=== PATIENT | female | born 1975 | race Caucasian/White ===

== ENCOUNTER → 2021-07-12 16:54 | Outpatient (BNVA) | payer OTHER, SELFPAY | PROVIDERS: Family Provider Nurse Practitioner; PCP Electrodiagnostic Medicine; Visit Provider Registered Nurse Neonatal Intensive Care | DX: Z20.822 Contact with and (suspected) exposure to COVID-19 (principal) | CPT/HCPCS: 87635 ==

== ENCOUNTER 2021-09-17 14:58 | Outpatient (CLI) | payer OTHER, SELFPAY ==
--- NOTE | 2021-09-17 15:04 | MM_ITS ---
WS: [id number] BILATERAL 3D TOMOSYNTHESIS DIGITAL SCREENING MAMMOGRAPHY WITH CAD CLINICAL INFORMATION: SCREENING HISTORY: Screening mammogram. No current complaints. COMPARISON: None. TECHNIQUE: Bilateral CC and MLO views. FINDINGS: Scattered fibroglandular densities bilaterally. Nodular bilateral breast tissue. Vascular calcificati on. No suspicious focal mass, asymmetry, calcifications, or architectural distortion. No evidence of malignancy. MM/[place] [id number] IMPRESSION: BI-RADS: 2-Benign FOLLOW UP: 1 Year Follow-up Recommend return to annual screening mammography.
== END 2021-09-17 14:59 | disposition home or self-care (01) ==
LOC: RADSHAW 15:00
PROVIDERS: PCP Electrodiagnostic Medicine; Visit Provider Electrodiagnostic Medicine
DX: Z12.31 Encounter for screening mammogram for malignant neoplasm of breast (principal)
CPT/HCPCS: 77063; 77067

== ENCOUNTER 2022-03-22 13:48 | Emergency (ER) | payer OTHER, SELFPAY ==
[2022-03-22 13:56] VITALS: BP 171/105; PULSE 80; RESP 30; TEMP 36.6; O2SAT 100
--- NOTE | 2022-03-22 14:04 | ECG_ITS ---
[facility] Test Date: 2022-03-22 Pat Name: Flor Fortune Department: Room: Gender: Female Home Administrator: : 1975 Requested By: Hai Montes Order Number: [id number] Chraito MD: Jack Wilkinson M.D. Measurements Intervals [place] Rate: 78 P: 22 SD: 153 QRS: -3 QRSD: 73 T: 38 QT: 372 QTc: 424 Interpretive Statements SINUS RHYTHM POSSIBLE ANTERIOR MYOCARDIAL INFARCTION , PROBABLY OLD [30 ms Q WAVE IN V3/V4, OR R < 0.2 mV IN V4] Compared to ECG 03/22/2022 14:13:04 Myocardial infarct finding now present Electronically Signed On 03-22-2022 21:59:32 CDT by Jack Wilkinson M.D. [id number]
--- NOTE | 2022-03-22 14:04 | XRR_ITS ---
PROCEDURE INFORMATION: Exam: XR Chest Exam date and time: 03/22/2022 2:11 PM Age: 46 years old Clinical indication: Pain; Chest pressure; Additional info: Cp TECHNIQUE: Imaging protocol: Radiologic exam of the chest. Views: 1 view. COMPARISON: No relevant prior studies available. FINDINGS: Lungs: Unremarkable. No consolidation. Pleural spaces: Unremarkable. No pleural effusion. No pneumothorax. Heart/Mediastinum: Unremarkable. No cardiomegaly. Bones/joints: Unremarkable. XR/XR chest 1V portable [id number] IMPRESSION: No acute findings.
--- NOTE | 2022-03-22 14:08 | W.ED.DIZZY ---
HPI - Dizziness General: Chief Complaint: Dizziness Stated Complaint: Chest Pain, Slurred Speech Time Seen by Provider: 03/22/22 13:59 Source: patient Mode of arrival: ambulatory Limitations: no limitations History of Present Illness: HPI Narrative: 46-year-old female states roughly 30 to 40 minutes ago she started having a sharp pain in the center of her chest she states that she then had numbness to her mouth mild hands and feet along with some dizziness she is quite anxious here does have a history anxiety she is hyperventilating she states she feels like her hands and feet are drawing up having some carpopedal spasms. Denies any fevers denies any worsening improving factors. Associated symptoms: Denies chest pain, chills, headache(s), nausea or vomiting Review of Systems Const: Denies: fever(s), chills, body aches or change in appetite Eyes: Denies: blurry vision or eye discomfort ENMT: Denies: throat pain or dental pain Card: Denies: chest pain Resp: Denies: dyspnea GI: Denies: abdominal pain, nausea, vomiting or diarrhea : Denies: dysuria Musc: Denies: neck pain or back pain Skin/Breast: Denies: rash Neuro: Denies: headache(s) Psych: Reports: anxiety Titi/Lymph: Denies: easy bruising All/Imm: Denies: urticaria PFSH ED PFSH: Medical History Anxiety Social History Alcohol intake: never Physical Exam Const: COMMON NORMALS: patient oriented x3 and healthy appearing GENERAL APPEARANCE: anxious HENMT: COMMON NORMALS: normocephalic and atraumatic HEAD & SCALP: normocephalic and atraumatic Eye: COMMON NORMALS: Equal, round and reactive pupils present and EOMs intact bilaterally PUPIL: Yes Equal, round and reactive pupils present Neck/C-Spine: COMMON NORMALS: full ROM and supple Chest: COMMONS NORMALS: normal inspection of the chest and normal palpation of entire chest wall Resp: COMMON NORMALS: No retractions, No use of accessory muscles and clear to auscultation bilaterally EFFORT & INSPECTION: Yes tachypneic AUSCULTATION: clear to auscultation bilaterally Cardio: COMMON NORMALS: regular rate, regular rhythm and No murmurs present (Cardio) RATE: regular rate RHYTHM: regular rhythm GI: COMMON NORMALS: Normal to inspection, nondistended, normoactive bowel sounds present, Soft to palpation, non-tender and no masses PALPATION: Yes Soft to palpation Extremity: COMMON NORMALS: normal to inspection and full ROM Neuro: COMMON NORMALS: patient oriented x3, moves all extremities and no focal motor deficits CRANIAL NERVES: Yes CN normal except as noted GAIT: Yes Normal gait present Psych: COMMON NORMALS: mental status grossly normal, Normal thought process present and cooperative THOUGHT PROCESS: Normal thought process present Skin: COMMON NORMALS: no rashes or lesions noted and no wounds GENERAL SKIN EXAM: no rashes or lesions noted Course Vital Signs: Vital signs: Vital Signs Temperature 98 F 03/22/22 13:56 Pulse Rate 75 03/22/22 16:30 Respiratory Rate 19 H 03/22/22 16:30 Blood Pressure 127/87 03/22/22 16:30 Pulse Oximetry 100 03/22/22 16:30 Oxygen Delivery Me thod 03/22/22 14:30 MDM - Dizziness Medical Decision Making Patient presents here with chest pain since resolved she is also having anxiety attack when she arrived likely causing her paresthesias she feels much improved here after Ativan initial and repeat troponins are negative she is stable for discharge she is to follow-up with PCP and return if worsening she understands agrees to plan. Lab Data : 03/22/22 13:55 03/22/22 13:55 Radiology Impressions Chest X-Ray 03/22/22 14:04 IMPRESSION: No acute findings. Head CT 03/22/22 14:23 IMPRESSION: No intracranial lesion or injury Laboratory Results WBC 6.0 10^3/uL (4.0-10.0) 03/22/22 13:55 RBC 5.04 10^6/uL (4.1-5.3) 03/22/22 13:55 Hgb 14.9 g/dL (11.5-15.3) 03/22/22 13:55 Hct 44.0 % (37.0-47.0) 03/22/22 13:55 MCV 87.3 fl (81-99) 03/22/22 13:55 MCH 29.6 pg (28.0-34.0) 03/22/22 13:55 MCHC 33.9 g/dL (30.0-36.0) 03/22/22 13:55 RDW 13.8 % (12.1-15.1) 03/22/22 13:55 Plt Count 281 10^3/cmm (130-400) 03/22/22 13:55 MPV 9.4 fL (7.4-10.4) 03/22/22 13:55 Neut % (Auto) 56.1 % 03/22/22 13:55 Lymph % (Auto) 33.1 % 03/22/22 13:55 Bibb % (Auto) 8.5 % 03/22/22 13:55 Eos % (Auto) 1.7 % 03/22/22 13:55 Baso % (Auto) 0.3 % 03/22/22 13:55 Neut # (Auto) 3.35 10^3/uL (1.8-7.7) 03/22/22 13:55 Lymph # (Auto) 2.0 10^3/uL (0.8-4.8) 03/22/22 13:55 [place]b # (Auto) 0.5 10^3/uL (0.2-0.9) 03/22/22 13:55 Eos # (Auto) 0.1 10^3/uL (0.0-0.8) 03/22/22 13:55 Baso # (Auto) 0.0 10^3/uL (0.0-0.1) 03/22/22 13:55 Nucleated RBC % (auto) 0 % 03/22/22 13:55 Nucleated RBCs # 0.0 /100WBC 03/22/22 13:55 PT 13.00 SECONDS (12.1-14.9) 03/22/22 13:55 INR 0.95 (0.8-1.2) 03/22/22 13:55 Sodium 137 mmol/L (136-145) 03/22/22 13:55 Potassium 4.0 mmol/L (3.5-5.1) 03/22/22 13:55 Chloride 104 mmol/L (98-107) 03/22/22 13:55 Carbon Dioxide 21 mmol/L (22-29) L 03/22/22 13:55 Anion Gap 16.0 (5-19) 03/22/22 13:55 BUN 13 mg/dL (6-20) 03/22/22 13:55 Creatinine 0.8 mg/dL (0.5-0.9) 03/22/22 13:55 GFR Calculation 77.2 mL/min (90-130) L 03/22/22 13:55 Glucose 111 mg/dL (65-115) 03/22/22 13:55 Calculated Osmolality 285 mOsm/kg (285-295) 03/22/22 13:55 Calcium 9.1 mg/dL (8.5-10.5) 03/22/22 13:55 Total Bilirubin 0.3 mg/dL (0.15-1.2) 03/22/22 13:55 AST 17 U/L (0-32) 03/22/22 13:55 ALT 25 U/L (0-33) 03/22/22 13:55 Alkaline Phosphatase 88 U/L (35-105) 03/22/22 13:55 Troponin T Baseline 6 ng/L (0-10) 03/22/22 13:55 Troponin T 120 Minute 6.00 ng/L (0-10) 03/22/22 16:01 Total Protein 7.0 g/dL (6.6-8.7) 03/22/22 13:55 Albumin 4.1 g/dL (3.5-5.2) 03/22/22 13:55 Globulin 2.9 g/dL (1.3-4.6) 03/22/22 13:55 EKG Data EKG 1: I personally reviewed and interpreted this EKG as follows: EKG interpretation date: 03/22/22 EKG interpretation time: 14:13 Interpretation: nsr hr [address] or t wave abnormalities qrs 80 qtc 395 EKG 2: I personally reviewed and interpreted this EKG as follows: EKG interpretation date: 03/22/22 EKG interpretation time: 15:43 Interpretation: nsr hr [address] or t wave abnormalities qrs 73 qtc 405 Discharge Plan Discharge Patient Disposition: Home Clinical Impression: Chest pain, Anxiety Prescriptions: No Action alprazolam 0.5 mg tablet 0.5 mg PO BID PRN (Reason: Anxiety) triamterene-hydrochlorothiazid 37.5-25 mg tablet 1 tab PO DAILY Discharge Orders: Discharge ED (Routine); Ordered 03/22/22 Ordered By: Hai Montes Referrals: Daren Figueroa DO [Primary Care Provider] - Discharge Diet: Advance as tolerated Discharge Activity: Resume usual activity Patient Instructions: Chest Pain (ED) Coding Level of Care Code ED Customer Supply Chain Analyst for Chg Fwd Exam Comprehensive NIH stroke score NIHSS Level Of Consciousness - 1a: 0 Level Of Consciousness Questions - 1b: Both Correct Level Of Consciousness Commands - 1c: Both Correct Best Gaze - 2: Normal Visual Saunders - 3: No Visual Loss Facial Palsy - 4: Normal Motor Arm Right - 5: No Drift Motor Arm Left - 5: No Drift Motor Leg Right - 6: No Drift Motor Leg Left - 6: No Drift Limb Ataxia - 7: Absent Sensory - 8: Normal Best Language - 9: No Aphasia Dysarthia - 10: Normal Extinction And Inattention - 11: 0 Score Total Score: 0
[2022-03-22 14:15] VITALS: BP 141/95; PULSE 71; RESP 24; O2SAT 96
[2022-03-22 14:15] LABS: Basophils % 0.3 %; Eosinophils # 0.1 10^3/uL (0.0-0.8); Eosinophils % 1.7 %; Hemoglobin 14.9 g/dL (11.5-15.3); Lymphocytes % 33.1 %; Mean Corpuscular HGB Conc 33.9 g/dL (30.0-36.0); Mean Corpuscular Hemoglobin 29.6 pg (28.0-34.0); Mean Corpuscular Volume 87.3 fl (81-99); Mean Platelet Volume 9.4 fL (7.4-10.4); Monocytes # 0.5 10^3/uL (0.2-0.9); Monocytes % 8.5 %; Neutrophils # 3.35 10^3/uL (1.8-7.7); Neutrophils % 56.1 %; Nucleated Red Blood Cells % 0 %; Platelet Count 281 10^3/cmm (130-400); Red Blood Count 5.04 10^6/uL (4.1-5.3); Red Cell Distribution Width 13.8 % (12.1-15.1)
[2022-03-22 14:16] LABS: INR 0.95 (0.8-1.2)
[2022-03-22] MEDS: LORazepam 2 mg Tablet PO (14:18)
--- NOTE | 2022-03-22 14:23 | CTR_ITS ---
PROCEDURE INFORMATION: Exam: CT Head Without Contrast Exam date and time: 03/22/2022 2:36 PM Age: 46 years old Clinical indication: Pain; Dizziness; Headache TECHNIQUE: Imaging protocol: Computed tomography of the head without contrast. Radiation optimization: All CT scans at this facility use at least one of these dose optimization techniques: automated exposure control; mA and/or kV adjustment per patient size (includes targeted exams where dose is matched to clinical indication); or iterative reconstruction. COMPARISON: No relevant prior studies available. RADIATION DOSE METRICS: Total DLP (mGy-cm): 1012.08 FINDINGS: Brain: There is no evidence of infarct, ballard-white matter differentiation is preserved. There is no hemorrhage or extra-axial collection. There is no mass. No evidence of subarachnoid hemorrhage. No evidence of cerebral edema. Cerebral ventricles: There is no hydrocephalus. Paranasal sinuses: Visualized sinuses are unremarkable. No fluid levels. Mastoid air cells: Visualized mastoid air cells are well aerated. Bones/joints: Unremarkable. No acute fracture. Soft tissues: Unremarkable. CT/CT head wo con* [id number] IMPRESSION: No intracranial lesion or injury
[2022-03-22 14:30] VITALS: BP 141/95; PULSE 75; RESP 20; O2SAT 100
[2022-03-22 14:44] LABS: Alanine Aminotransferase 25 U/L (0-33); Albumin Level 4.1 g/dL (3.5-5.2); Alkaline Phosphatase 88 U/L (35-105); Aspartate Amino Transferase 17 U/L (0-32); Blood Urea Nitrogen 13 mg/dL (6-20); Calcium 9.1 mg/dL (8.5-10.5); Carbon Dioxide 21 mmol/L (22-29); Chloride 104 mmol/L (98-107); Globulin 2.9 g/dL (1.3-4.6); Glomerular Filtration Rate 77.2 mL/min (90-130); Glucose 111 mg/dL (65-115); Osmolality Calculated 285 mOsm/kg (285-295); Sodium 137 mmol/L (136-145); Total Bilirubin 0.3 mg/dL (0.15-1.2)
[2022-03-22 14:45] LABS: Troponin(5th) Baseline 6 ng/L (0-10)
[2022-03-22 15:30] VITALS: BP 125/85; PULSE 75; RESP 19; O2SAT 97
--- NOTE | 2022-03-22 16:04 | ECG_ITS ---
[facility] Test Date: 2022-03-22 Pat Name: Flor Fortune Department: Room: Gender: Female Flotation Tender: : 1975 Requested By: aHi Montes Order Number: [id number] Charito MD: Jack Wilkinson M.D. Measurements Intervals [place] Rate: 78 P: 20 [place]: 146 QRS: 4 QRSD: 80 T: 34 QT: 361 QTc: 414 Interpretive Statements SINUS RHYTHM No previous ECG available for comparison Electronically Signed On 03-22-2022 22:05:07 CDT by Jack Wilkinson M.D. [id number]
[2022-03-22 16:30] VITALS: BP 127/87; PULSE 75; RESP 19; O2SAT 100
[2022-03-22 16:52] VITALS: BP 121/80; PULSE 86; RESP 21; O2SAT 97
[2022-03-22 18:14] LABS: Troponin 5 2HR Delta 0 ABS# (0-10)
== END 2022-03-22 16:50 | disposition home or self-care (01) ==
PROVIDERS: Emergency Provider Emergency Medicine; PCP Electrodiagnostic Medicine
DX: R07.9 Chest pain, unspecified (principal); F41.9 Anxiety disorder, unspecified
CPT/HCPCS: 36415; 70450; 71045; 80053; 84484; 85025; 85610; 93005; 99285

== ENCOUNTER 2022-04-28 15:16 | Emergency (ER) | payer OTHER, SELFPAY ==
[2022-04-28 15:18] VITALS: BP 140/96; PULSE 122; RESP 18; TEMP 37.3; O2SAT 99
--- NOTE | 2022-04-28 15:26 | CTR_ITS ---
PROCEDURE INFORMATION: Exam: CT Head Without Contrast Exam date and time: 04/28/2022 3:31 PM Age: 46 years old Clinical indication: Pain; Headache; Additional info: Upper ext sensation changes/ TALBOT TECHNIQUE: Imaging protocol: Computed tomography of the head without contrast. Axial, coronal and sagittal reformatted images were created and reviewed. Radiation optimization: All CT scans at this facility use at least one of these dose optimization techniques: automated exposure control; mA and/or kV adjustment per patient size (includes targeted exams where dose is matched to clinical indication); or iterative reconstruction. COMPARISON: CT head wo con* [id number] 03/22/2022 2:36 PM RADIATION DOSE METRICS: Total DLP (mGy-cm): 1070.23 FINDINGS: Brain: No CT evidence of acute intracranial hemorrhage or acute territorial infarction. No significant mass effect or midline shift. Basal cisterns patent. Cerebral ventricles: Normal in size and configuration. Paranasal sinuses: Unremarkable. No fluid levels. Mastoid air cells: Grossly unremarkable. Bones/joints: No acute osseous abnormality. Soft tissues: Grossly unremarkable. CT/CT head wo con* [id number] IMPRESSION: No CT evidence of acute intracranial pathology.
--- NOTE | 2022-04-28 15:54 | ED_ITS ---
HPI - Neuro Symptoms/Deficit General: Chief Complaint: Neuro Symptoms/Deficit Stated Complaint: Stoke like symptoms Time Seen by Provider: 04/28/22 15:54 History of Present Illness: Ms. Fortune is a 46-year-old lady with history of hypertension and tobaccoism presenting to the emergency department due to abnormal generalized illness. She reports a similar episode back in March however what brought her in today was sudden onset of abnormal feeling in both arms, feeling tingly all over, posterior headache, and sore throat. This started at 2:19 PM suddenly when she was in her car. She denies specific known provoking factors. Course of symptoms has persisted. No other specific changes in health, exacerbating, or alleviating factors identified. Onset (ago): hour(s) Time: 14:19 History of same: Yes Severity: moderate Review of Systems General: Reports: 10 or more systems reviewed and unremarkable except in HPI and below PFSH ED PFSH: Medical History Anxiety HTN (hypertension) Smoker Surgical History History of reversal of tubal ligation (~2008) S/P tubal ligation (~2002) Family History Father COPD (chronic obstructive pulmonary disease) CHF (congestive heart failure) Hypertension Chronic kidney disease (CKD) Mother Hypertension Diabetes Social History Smoking and tobacco status: current every day smoker cigarettes Packs smoked per day: 1 Years cigarettes smoked: 35 Alcohol intake: never Physical Exam Const: COMMON NORMALS: patient oriented x3 and alert GENERAL APPEARANCE: cooperative and well developed HENMT: COMMON NORMALS: normocephalic and atraumatic HEAD & SCALP: normocephalic and atraumatic THROAT: posterior oropharynx normal Eye: COMMON NORMALS: Equal, round and reactive pupils present, EOMs intact bilaterally, conjunctivae normal and normal visual head by confrontation CONJUNCTIVA: Yes conjunctivae normal SCLERA: sclerae normal PUPIL: Yes Equal, round and reactive pupils present Neck/C-Spine: COMMON NORMALS: supple GENERAL: Yes trachea midline Resp: COMMON NORMALS: normal respiratory effort EFFORT & INSPECTION: Yes able to speak in complete sentences Cardio: COMMON NORMALS: regular rhythm RATE: tachycardic RHYTHM: regular rhythm GI: COMMON NORMALS: Soft to palpation PALPATION: Yes Soft to palpation and No Tenderness to palpation present (GI) Extremity: NARRATIVE EXTREMITY EXAM: Positive Trousseau sign GENERAL: Yes normal exam except as noted and No edema Neuro: COMMON NORMALS: patient oriented x3, CN's II-XII intact bilaterally, moves all extremities, no focal motor deficits and no sensory deficits noted SENSORIUM/ORIENTATION: Yes alert and No Orientation impaired Psych: COMMON NORMALS: mental status grossly normal and Normal thought process present THOUGHT PROCESS: Normal thought process present Course Vital Signs: Vital signs: Vital Signs Temperature 99.2 F 04/28/22 15:18 Pulse Rate 122 H 04/28/22 15:18 Respiratory Rate 18 04/28/22 15:18 Blood Pressure 140/96 04/28/22 15:18 Pulse Oximetry 99 04/28/22 15:18 MDM - Neuro Symptoms/Deficit Medical Decision Making 46-year-old lady presenting with concern over strokelike symptoms. Physical exam performed as above and symptoms are not very Consistent with acute stroke. Seems more likely to be related to anxiety/hyperventilation though does require further evaluation. CT negative for acute intracranial pathology. No significant hematologic abnormalities. Metabolic panel with hypokalemia. Hematuria present. Prior to completion of ED evaluation patient expressed desire to leave and left AGAINST MEDICAL ADVICE. Most likely etiology of patient symptoms is unclear though does not appear to be stroke. Medical Records I reviewed the patient's medical records. Lab Data I reviewed the patient's lab results. : 04/28/22 16:30 04/28/22 16:[address] 04/28/22 15:26 IMPRESSION: No CT evidence of acute intracranial pathology. Laboratory Results WBC 6.5 10^3/uL (4.0-10.0) 04/28/22 16:30 RBC 4.77 10^6/uL (4.1-5.3) 04/28/22 16:30 Hgb 14.1 g/dL (11.5-15.3) 04/28/22 16:30 Hct 40.7 % (37.0-47.0) 04/28/22 16:30 MCV 85.3 fl (81-99) 04/28/22 16:30 MCH 29.6 pg (28.0-34.0) 04/28/22 16:30 MCHC 34.6 g/dL (30.0-36.0) 04/28/22 16:30 RDW 12.9 % (12.1-15.1) 04/28/22 16:30 Plt Count 281 10^3/cmm (130-400) 04/28/22 16:30 MPV 8.9 fL (7.4-10.4) 04/28/22 16:30 Neut % (Auto) 59.2 % 04/28/22 16:30 Lymph % (Auto) 29.4 % 04/28/22 16:30 [place] % (Auto) 9.1 % 04/28/22 16:30 Eos % (Auto) 1.5 % 04/28/22 16: Baso % (Auto) 0.3 % 04/28/22 16:30 Neut # (Auto) 3.82 10^3/uL (1.8-7.7) 04/28/22 16:30 Lymph # (Auto) 1.9 10^3/uL (0.8-4.8) 04/28/22 16:30 [place] # (Auto) 0.6 10^3/uL (0.2-0.9) 04/28/22 16:30 Eos # (Auto) 0.1 10^3/uL (0.0-0.8) 04/28/22 16:30 Baso # (Auto) 0.0 10^3/uL (0.0-0.1) 04/28/22 16:30 Nucleated RBC % (auto) 0 % 04/28/22 16:30 Nucleated RBCs # 0.0 /100WBC 04/28/22 16:30 Sodium 136 mmol/L (136-145) 04/28/22 16:30 Potassium 3.0 mmol/L (3.5-5.1) L 04/28/22 16:30 Chloride 97 mmol/L (98-107) L 04/28/22 16:30 Carbon Dioxide 26 mmol/L (22-29) 04/28/22 16:30 Anion Gap 16.0 (5-19) 04/28/22 16:30 BUN 11 mg/dL (6-20) 04/28/22 16:30 Creatinine 0.8 mg/dL (0.5-0.9) 04/28/22 16:30 GFR Calculation 77.2 mL/min (90-130) L 04/28/22 16:30 Glucose 76 mg/dL (65-115) 04/28/22 16:30 POC Glucose 114 mg/dL (70-110) H 04/28/22 16:13 Calculated Osmolality 280 mOsm/kg (285-295) L 04/28/22 16:30 Calcium 9.7 mg/dL (8.5-10.5) 04/28/22 16:30 Ionized Calcium [place] Cancelled 04/28/22 16:30 Total Bilirubin 0.3 mg/dL (0.15-1.2) 04/28/22 16:30 AST 20 U/L (0-32) 04/28/22 16:30 ALT 26 U/L (0-33) 04/28/22 16:30 Alkaline Phosphatase 89 U/L (35-105) 04/28/22 16:30 Troponin T Baseline 6 ng/L (0-10) 04/28/22 16:30 Total Protein 7.5 g/dL (6.6-8.7) 04/28/22 16:30 Albumin 4.3 g/dL (3.5-5.2) 04/28/22 16:30 Globulin 3.2 g/dL (1.3-4.6) 04/28/22 16:30 TSH 1.27 uIU/mL (0.27-4.20) 04/28/22 16:30 Urine Color Yellow (Yellow) 04/28/22 16:19 Urine Appearance Clear (CLEAR) 04/28/22 16:19 Urine pH 6.5 (5-7) 04/28/22 16:19 Ur Specific [place] 1.005 (1.005-1.030) 04/28/22 16:19 Urine Protein Neg (Negative) 04/28/22 16:19 Urine Glucose (UA) Norm (Normal) 04/28/22 16:19 Urine Ketones Negative (Negative) 04/28/22 16:19 Urine Blood 2+ (Negative) H 04/28/22 16:19 Urine Nitrate Negative (Negative) 04/28/22 16:19 Urine Bilirubin Neg (Negative) 04/28/22 16: Urine Urobilinogen Norm mg/dL (Negative) 04/28/22 16:19 Ur Leukocyte Esterase Negative (Negative) 04/28/22 16:19 Urine RBC 0-4 /hpf (0-2) H 04/28/22 16:19 Urine WBC 0-4 /hpf (0-5) H 04/28/22 16:19 Ur Squamous Epith Cells 0-4 /hpf (0-5) H 04/28/22 16:19 Amorphous Sediment Not Reportable 04/28/22 16:19 Urine Bacteria Trace /hpf (NONE) 04/28/22 16:19 Discharge Plan Discharge Patient Disposition: Left Against Medical Advice Clinical Impression: Neurological complaint Condition: Stable Prescriptions: No Action aspirin [Adult Low Dose Aspirin] 81 mg tablet,delayed release (DR/EC) 81 mg PO BEDTIME metoprolol succinate 25 mg tablet extended release 24 hr 25 mg PO BEDTIME olmesartan 5 mg tablet 5 mg PO QAM alprazolam 0.5 mg tablet 0.25 - 0.5 mg PO BEDTIME triamterene-hydrochlorothiazid 37.5-25 mg tablet 1 tab PO QAM Referrals: Ledezma,DEBBIE Norris [Primary Care Provider] - Coding Level of Care Code ED Salesperson Sewing Machines for Chg Fwd Exam Comprehensive
--- NOTE | 2022-04-28 16:02 | ECG_ITS ---
[facility] Test Date: 2022-04-28 Pat Name: Flor Fortune Department: Room: Gender: Female Database Security Administrator: : 1975 Requested By: Sergio Sandoval Order Number: [id number] Charito MD: Pat Brewer M.D. Measurements Intervals [place] Rate: 112 P: 42 [place]: 135 QRS: 14 QRSD: 85 T: 31 QT: 327 QTc: 447 Interpretive Statements SINUS TACHYCARDIA POSSIBLE LEFT ATRIAL ENLARGEMENT [-0.1mV P-WAVE IN V1/V2] LOW QRS VOLTAGE IN PRECORDIAL LEADS [QRS DEFLECTION < 1.0 mV IN CHEST LEADS] MINIMAL ST DEPRESSION [0.025+ mV ST DEPRESSION] ABNORMAL RHYTHM ECG INTERPRETATION BASED ON A DEFAULT AGE OF 40 YEARS Compared to ECG 03/22/2022 15:43:34 Low QRS voltage now present ST (T wave) deviation now present Sinus rhythm no longer present Myocardial infarct finding no longer present Electronically Signed On 04-28-2022 21:03:12 COMMUNITY AFFAIRS DIRECTOR by Pat Brewer M.D. [id number] te
[2022-04-28 16:15] LABS: Glucose Point of Care 114 mg/dL (70-110)
[2022-04-28] MEDS: diphenhydrAMINE 50 mg/mL SDV 1mL 12.5 MG IVP (16:39)
[2022-04-28] MEDS: metoclopramide 5 mg/mL SDV 2 mL 10 MG IVP (16:39)
[2022-04-28] MEDS: ketorolac 30 mg/mL INJ 15 MG IVP (16:39)
[2022-04-28] MEDS: sodium chloride 0.9% 1,000 ML 999 ML IV (16:40)
[2022-04-28 16:49] LABS: Basophils % 0.3 %; Eosinophils # 0.1 10^3/uL (0.0-0.8); Eosinophils % 1.5 %; Hematocrit 40.7 % (37.0-47.0); Hemoglobin 14.1 g/dL (11.5-15.3); Lymphocytes # 1.9 10^3/uL (0.8-4.8); Lymphocytes % 29.4 %; Mean Corpuscular HGB Conc 34.6 g/dL (30.0-36.0); Mean Corpuscular Hemoglobin 29.6 pg (28.0-34.0); Mean Corpuscular Volume 85.3 fl (81-99); Mean Platelet Volume 8.9 fL (7.4-10.4); Monocytes # 0.6 10^3/uL (0.2-0.9); Monocytes % 9.1 %; Neutrophils # 3.82 10^3/uL (1.8-7.7); Neutrophils % 59.2 %; Nucleated Red Blood Cells % 0 %; Platelet Count 281 10^3/cmm (130-400); Red Blood Count 4.77 10^6/uL (4.1-5.3); Red Cell Distribution Width 12.9 % (12.1-15.1); White Blood Count 6.5 10^3/uL (4.0-10.0)
[2022-04-28 17:12] LABS: Troponin(5th) Baseline 6 ng/L (0-10)
[2022-04-28 17:19] LABS: Alanine Aminotransferase 26 U/L (0-33); Albumin Level 4.3 g/dL (3.5-5.2); Alkaline Phosphatase 89 U/L (35-105); Aspartate Amino Transferase 20 U/L (0-32); Blood Urea Nitrogen 11 mg/dL (6-20); Calcium 9.7 mg/dL (8.5-10.5); Carbon Dioxide 26 mmol/L (22-29); Chloride 97 mmol/L (98-107); Globulin 3.2 g/dL (1.3-4.6); Glomerular Filtration Rate 77.2 mL/min (90-130); Glucose 76 mg/dL (65-115); Osmolality Calculated 280 mOsm/kg (285-295); Sodium 136 mmol/L (136-145); Thyroid Stimulating Hormone 1.27 uIU/mL (0.27-4.20); Total Bilirubin 0.3 mg/dL (0.15-1.2); Total Protein 7.5 g/dL (6.6-8.7)
[2022-04-28 17:30] LABS: Add Urine Microscopic? YES; Bilirubin Urine Neg (Negative); Blood Urine 2+ (Negative); Glucose Urine UA Norm (Normal); Ketones Urine Negative (Negative); Leukocyte Esterase Urine Negative (Negative); Nitrate Urine Negative (Negative); Protein Urine Neg (Negative); Specific Gravity, Urine 1.005 (1.005-1.030); Urine Appearance Clear (CLEAR); Urine Color Yellow (Yellow); Urobilinogen Urine Norm (Negative); pH Urine 6.5 (5-7)
[2022-04-28 17:31] LABS: Add Urine Culture? No; Bacteria Urine TRACE /hpf; RBC Urine 0-4 /hpf (0-2); Squamous Epithelial Cell Urine 0-4 /hpf (0-5); WBC Urine 0-4 /hpf (0-5)
--- NOTE | 2022-04-28 18:02 | ECG_ITS ---
[facility] Test Date: 2022-04-28 Pat Name: Flor Fortune Department: Room: Gender: Female Community Life Director: : 1975 Requested By: Sergio Sandoval Order Number: [id number] Charito MD: Pat Brewer M.D. Measurements Intervals [place] Rate: 112 P: 42 [place]: 135 QRS: 14 QRSD: 85 T: 31 QT: 327 QTc: 447 Interpretive Statements SINUS TACHYCARDIA POSSIBLE LEFT ATRIAL ENLARGEMENT [-0.1mV P-WAVE IN V1/V2] LOW QRS VOLTAGE IN PRECORDIAL LEADS [QRS DEFLECTION < 1.0 mV IN CHEST LEADS] MINIMAL ST DEPRESSION [0.025+ mV ST DEPRESSION] ABNORMAL RHYTHM ECG INTERPRETATION BASED ON A DEFAULT AGE OF 40 YEARS Compared to ECG 03/22/2022 15:43:34 Low QRS voltage now present ST (T wave) deviation now present Sinus rhythm no longer present Myocardial infarct finding no longer present Electronically Signed On 04-28-2022 21:08:41 BUILDING PRINCIPAL by Pat Brewer M.D. [id number] te
== END 2022-04-28 17:13 | disposition left against medical advice (07) ==
PROVIDERS: Emergency Provider Emergency Medicine; PCP Nurse Practitioner Family
DX: Z53.29 Procedure and treatment not carried out because of patient's decision for other reasons (principal); R20.2 Paresthesia of skin; R51.9 Headache, unspecified; I10 Essential (primary) hypertension; F17.210 Nicotine dependence, cigarettes, uncomplicated; F41.9 Anxiety disorder, unspecified; Z79.82 Long term (current) use of aspirin
CPT/HCPCS: 36416; 70450; 80053; 81001; 82962; 84443; 84484; 85025; 93005; 96361; 96374; 96375; 99285; J1200; J1885; J2765; J7030

== ENCOUNTER 2022-05-02 20:22 | Emergency (ER) | payer OTHER, SELFPAY ==
[2022-05-02 20:25] VITALS: BP 146/91; PULSE 104; RESP 20; TEMP 36.4; O2SAT 98
--- NOTE | 2022-05-02 20:44 | CTR_ITS ---
PROCEDURE INFORMATION: Exam: CT Head Without Contrast Exam date and time: 05/02/2022 9:00 PM Age: 46 years old Clinical indication: Altered mental status/memory loss; Additional info: AMS, ? sz TECHNIQUE: Imaging protocol: Computed tomography of the head without contrast. Radiation optimization: All CT scans at this facility use at least one of these dose optimization techniques: automated exposure control; mA and/or kV adjustment per patient size (includes targeted exams where dose is matched to clinical indication); or iterative reconstruction. COMPARISON: CT head wo con* [id number] 04/28/2022 3:31 PM RADIATION DOSE METRICS: Total DLP (mGy-cm): 1169.28 FINDINGS: Brain: Unremarkable. No hemorrhage. No significant white matter disease. No edema. Cerebral ventricles: No ventriculomegaly. Paranasal sinuses: 1.7 cm retention cyst right maxillary sinus. The included paranasal sinuses are otherwise clear. Mastoid air cells: Unremarkable as visualized. No mastoid effusion. Bones/joints: Unremarkable. No acute fracture. Soft tissues: Unremarkable. CT/CT head wo con* [id number] IMPRESSION: 1. No acute intracranial abnormality demonstrated. 2. There is no interval change from the prior examination.
--- NOTE | 2022-05-02 20:44 | XRR_ITS ---
PROCEDURE INFORMATION: Exam: XR Chest Exam date and time: 05/02/2022 9:56 PM Age: 46 years old Clinical indication: Shortness of breath; Additional info: AMS TECHNIQUE: Imaging protocol: Radiologic exam of the chest. Views: 1 view. COMPARISON: CR (CHEST, ) 03/22/2022 2:11 PM FINDINGS: Lungs: Mild atelectasis at the lung bases. No consolidative pulmonary infiltrate noted. Pleural spaces: No pleural effusion. No pneumothorax. Heart/Mediastinum: No cardiomegaly. Bones/joints: Unremarkable. XR/XR chest 1V portable [id number] IMPRESSION: 1. Mild atelectasis at the lung bases. This is new when compared to 03/22/2022. 2. No consolidative pulmonary infiltrate noted.
[2022-05-02 20:52] LABS: Basophils # 0.1 10^3/uL (0.0-0.1); Basophils % 0.9 %; Eosinophils # 0.2 10^3/uL (0.0-0.8); Eosinophils % 3.9 %; Hematocrit 39.9 % (37.0-47.0); Hemoglobin 13.3 g/dL (11.5-15.3); Lymphocytes # 2.8 10^3/uL (0.8-4.8); Lymphocytes % 52.6 %; Mean Corpuscular HGB Conc 33.3 g/dL (30.0-36.0); Mean Corpuscular Hemoglobin 29.4 pg (28.0-34.0); Mean Corpuscular Volume 88.3 fl (81-99); Mean Platelet Volume 8.9 fL (7.4-10.4); Monocytes # 0.5 10^3/uL (0.2-0.9); Monocytes % 8.3 %; Neutrophils # 1.82 10^3/uL (1.8-7.7); Neutrophils % 33.7 %; Nucleated Red Blood Cells % 0 %; Platelet Count 298 10^3/cmm (130-400); Red Blood Count 4.52 10^6/uL (4.1-5.3); Red Cell Distribution Width 13.1 % (12.1-15.1); White Blood Count 5.4 10^3/uL (4.0-10.0)
[2022-05-02] MEDS: sodium chloride 0.9% 1,000 ML 999 ML IV (20:53)
[2022-05-02 21:08] LABS: Alanine Aminotransferase 28 U/L (0-33); Albumin Level 4.1 g/dL (3.5-5.2); Alkaline Phosphatase 88 U/L (35-105); Anion Gap 14.8 (5-19); Aspartate Amino Transferase 21 U/L (0-32); Blood Urea Nitrogen 11 mg/dL (6-20); Calcium 9.2 mg/dL (8.5-10.5); Carbon Dioxide 26 mmol/L (22-29); Chloride 101 mmol/L (98-107); Globulin 3.1 g/dL (1.3-4.6); Glomerular Filtration Rate 77.2 mL/min (90-130); Glucose 131 mg/dL (65-115); HCG, Serum Qual Negative (Negative); Magnesium 2.1 mg/dL (1.7-2.3); Osmolality Calculated 287 mOsm/kg (285-295); Phosphorus 3.6 mg/dL (2.5-4.5); Potassium 3.8 mmol/L (3.5-5.1); Sodium 138 mmol/L (136-145); Total Bilirubin 0.2 mg/dL (0.15-1.2); Total Protein 7.2 g/dL (6.6-8.7)
[2022-05-02 21:09] LABS: Alcohol Level < 10 mg/dL (0-10)
[2022-05-02 21:18] LABS: Lactate (Lactic Acid level) 1.7 mmol/L (0.5-2.2)
--- NOTE | 2022-05-02 22:48 | W.ED.GENADLT ---
HPI - General Adult General: Chief complaint: General Medical Stated complaint: High blood pressure, numbness all over Time Seen by Provider: 05/02/22 20:32 Source: patient and family History of Present Illness: 46-year-old female presenting with an episode of shaking and decreased responsiveness at home. Patient and family note that extended family was over, and they seem to be having a good time. She was relaxing she began to have the symptoms at that point. She was confused afterwards. Currently, she is experiencing significant muscular discomfort, some neck pain and headache. She denies significant visual disturbance. She is generally weak, and has a bit of slurred speech Onset (ago): minute(s) Location: head Radiation: other Severity: moderate Quality: other Pain Consistency: other Relieving factors: other Associated symptoms: Reports confusion, diaphoresis, headache(s), nausea, seizures (Questionable), syncope (Potentially) and weakness (Generalized); Deny chest pain, dyspnea, fevers/chills, rash or vomiting Review of Systems Const: Reports: body aches and diaphoresis; Denies: fever(s) Eyes: Denies: change in vision ENMT: Denies: throat pain Card: Reports: syncope (Potentially); Denies: chest pain Resp: Denies: dyspnea GI: Reports: nausea; Denies: abdominal pain or vomiting Musc: Reports: neck pain and back pain Skin/Breast: Denies: rash Neuro: Reports: headache(s) and confusion PFS ED PFSH: Medical History Anxiety HTN (hypertension) Smoker Surgical History History of reversal of tubal ligation (~2008) S/P tubal ligation (~2002) Family History Father COPD (chronic obstructive pulmonary disease) CHF (congestive heart failure) Hypertension Chronic kidney disease (CKD) Mother Hypertension Diabetes Social History Smoking and tobacco status: current every day smoker cigarettes Packs smoked per day: 1 Years cigarettes smoked: 35 Alcohol intake: never Physical Exam Const: GENERAL APPEARANCE: cooperative, well kempt, lethargic (Mildly) and ill appearing (Mildly); not frail appearing ORIENTATION/CONSCIOUSNESS: Yes lethargic (Mildly) HENMT: COMMON NORMALS: normocephalic, atraumatic and Normal external nose present HEAD & SCALP: normocephalic and atraumatic FACE & SINUS: normal facial exam and face symmetric; no abrasion NOSE: Normal external nose present MOUTH: Normal oral and palatal mucosa present and tongue normal Eye: COMMON NORMALS: Equal, round and reactive pupils present, EOMs intact bilaterally and conjunctivae normal ALIGNMENT: Yes alignment normal CONJUNCTIVA: Yes conjunctivae normal PUPIL: Yes Equal, round and reactive pupils present Neck/C-Spine: GENERAL: Yes trachea midline Chest: CHEST: Yes Symmetrical chest wall rise Resp: COMMON NORMALS: normal respiratory effort, No use of accessory muscles and clear to auscultation bilaterally AUSCULTATION: clear to auscultation bilaterally Cardio: COMMON NORMALS: regular rate and regular rhythm RATE: regular rate RHYTHM: regular rhythm GI: COMMON NORMALS: Normal to inspection, nondistended, normoactive bowel sounds present and Soft to palpation PALPATION: Yes Soft to palpation Extremity: COMMON NORMALS: no pedal edema Neuro: ALMAZ COMA SCALE: document GCS findings Almaz coma scale eye opening: Spontaneous Almaz coma scale verbal response: Orientated [place] coma scale motor response: Obey commands Almaz coma scale total score: 15 SENSORIUM/ORIENTATION: Yes lethargic (Mildly) COORDINATION/BALANCE: Normal rapid alternating movements of the distal upper extremity present (Neuro) (Normal) SPEECH: abnormal speech Details: slurred (Minimal) SENSORY EXAM: Yes extremities (Intact) MOTOR EXAM: Normal motor muscle tone present throughout and Motor abnormalities not present COORDINATION: rapid alternating movement UE normal (Normal) Psych: COMMON NORMALS: cooperative APPEARANCE: Yes well kempt ATTITUDE: Yes engaged Skin: COMMON NORMALS: no rashes or lesions noted GENERAL SKIN EXAM: no rashes or lesions noted Course Vital Signs: Vital signs: Vital Signs Temperature 97.5 F L 05/02/22 20:25 Pulse Rate 89 05/02/22 23:04 Respiratory Rate 20 H 05/02/22 23:04 Blood Pressure 129/84 05/02/22 23:04 Pulse Oximetry 97 05/02/22 23:04 Oxygen Delivery Me thod 05/02/22 20:25 MDM - General Adult Medical Decision Making Patient's symptoms improved to some degree while here. No arrhythmias on the monitor. She was hydrated with a liter of fluid. She declined any medication. Midazolam had been ordered for her, to prevent rebound seizures should this have been a seizure, but was never given. The patient has had several of these episodes recently. This 1 seems to be the worst. Symptoms to some degree match hyperventilation with carpopedal spasm and muscle stiffness, but in the differential diagnosis would be arrhythmia, seizure, or ischemic brain injury. She had a negative head CT a few days ago, and is repeated this evening, and is still negative with no interval change. She never had any chest discomfort. Her CBC is normal. Her BMP is not remarkable. Chest x-ray is negative. She had a recent Holter monitor placed with results showing sinus rhythm, sinus tachycardia, and PVCs on and off. Family is obviously very concerned given the patient has had more than 1 of these episodes. CHAYA panel is sent, as the patient has a family history of lupus. She is asking to go home at this point. We will allow her discharge. They will follow-up with her PCP. They have seen cardiology. We will ask case management to make an appointment as an outpatient for neurology as well. She knows to return for any worsening symptoms. Lab Data : 05/02/22 20:39 05/02/22 20:39 Radiology Impressions Chest X-Ray 05/02/22:44 IMPRESSION: 1. Mild atelectasis at the lung bases. This is new when compared to 03/22/2022. 2. No consolidative pulmonary infiltrate noted. Head CT 05/02/22:44 IMPRESSION: 1. No acute intracranial abnormality demonstrated. 2. There is no interval change from the prior examination. Laboratory Results WBC 5.4 10^3/uL (4.0-10.0) 05/02/22 20:39 RBC 4.52 10^6/uL (4.1-5.3) 05/02/22 20:39 Hgb 13.3 g/dL (11.5-15.3) 05/02/22 20:39 Hct 39.9 % (37.0-47.0) 05/02/22 20:39 MCV 88.3 fl (81-99) 05/02/22 20:39 MCH 29.4 pg (28.0-34.0) 05/02/22 20: MCHC 33.3 g/dL (30.0-36.0) 05/02/22 20:39 RDW 13.1 % (12.1-15.1) 05/02/22 20:39 Plt Count 298 10^3/cmm (130-400) 05/02/22 20:39 MPV 8.9 fL (7.4-10.4) 05/02/22 20:39 Neut % (Auto) 33.7 % 05/02/22 20:39 Lymph % (Auto) 52.6 % 05/02/22 20:39 [place] % (Auto) 8.3 % 05/02/22 20:39 Eos % (Auto) 3.9 % 05/02/22 20:39 Baso % (Auto) 0.9 % 05/02/22 20:39 Neut # (Auto) 1.82 10^3/uL (1.8-7.7) 05/02/22 20:39 Lymph # (Auto) 2.8 10^3/uL (0.8-4.8) 05/02/22 20:39 [place] # (Auto) 0.5 10^3/uL (0.2-0.9) 05/02/22 20:39 Eos # (Auto) 0.2 10^3/uL (0.0-0.8) 05/02/22 20:39 Baso # (Auto) 0.1 10^3/uL (0.0-0.1) 05/02/22 20:39 Nucleated RBC % (auto) 0 % 05/02/22 20:39 Nucleated RBCs # 0.0 /100WBC 05/02/22 20:39 Sodium 138 mmol/L (136-145) 05/02/22 20:39 Potassium 3.8 mmol/L (3.5-5.1) 05/02/22 20:39 Chloride 101 mmol/L (98-107) 05/02/22 20:39 Carbon Dioxide 26 mmol/L (22-29) 05/02/22 20:39 Anion Gap 14.8 (5-19) 05/02/22 20:39 BUN 11 mg/dL (6-20) 05/02/22 20:39 Creatinine 0.8 mg/dL (0.5-0.9) 05/02/22 20:39 GFR Calculation 77.2 mL/min (90-130) L 05/02/22 20:39 Glucose 131 mg/dL (65-115) H 05/02/22 20:39 Calculated Osmolality 287 mOsm/kg (285-295) 05/02/22 20:39 Lactate 1.7 mmol/L (0.5-2.2) 05/02/22 20:53 Calcium 9.2 mg/dL (8.5-10.5) 05/02/22 20:39 Phosphorus 3.6 mg/dL (2.5-4.5) 05/02/22 20:39 Magnesium 2.1 mg/dL (1.7-2.3) 05/02/22 20:39 Total Bilirubin 0.2 mg/dL (0.15-1.2) 05/02/22 20:39 AST 21 U/L (0-32) 05/02/22 20:39 ALT 28 U/L (0-33) 05/02/22 20:39 Alkaline Phosphatase 88 U/L (35-105) 05/02/22 20:39 C-Reactive Protein 3.0 mg/L (0.0-4.9) 05/02/22 20:39 Total Protein 7.2 g/dL (6.6-8.7) 05/02/22 20:39 Albumin 4.1 g/dL (3.5-5.2) 05/02/22 20:39 Globulin 3.1 g/dL (1.3-4.6) 05/02/22 20:39 HCG, Qual Negative (Negative) 05/02/22 20:39 Ethyl Alcohol < 10 mg/dL (0-10) 05/02/22 20:39 Discharge Plan Discharge Patient Disposition: Home Clinical Impression: Near syncope Condition: Stable Prescriptions: No Action aspirin [Adult Low Dose Aspirin] 81 mg tablet,delayed release (DR/EC) 81 mg PO BEDTIME metoprolol succinate 25 mg tablet extended release 24 hr 25 mg PO BEDTIME olmesartan 5 mg tablet 5 mg PO QAM alprazolam 0.5 mg tablet 0.25 - 0.5 mg PO BEDTIME triamterene-hydrochlorothiazid 37.5-25 mg tablet 1 tab PO QAM Discharge Orders: Discharge ED (Routine); Ordered 05/02/22 Ordered By: Andrés Fernandez Referrals: Ledezma,Myrna, RECEIVING TEAM MEMBER [Primary Care Provider] - 1-3 days Patient Instructions: Near Syncope (ED) Activity Restrictions/Additional Instructions: Call your doctor Wednesday to let them know you were seen here. You will need follow-up with cardiology as well as neurology. Case management has been requested to make a neurology appointment for you. Return for repeated episodes of syncope or passing out, evidence of seizure, significant mental status changes, weakness, any other concerning symptoms. Coding Level of Care Code ED Papier Mache[employer] Molder for Humberto Sainz
[2022-05-02 23:04] VITALS: BP 129/84; PULSE 89; RESP 20; O2SAT 97
--- NOTE | 2022-05-04 08:10 | PC.SOCIAL ---
Addendum entered by Roxane Mcmullen 06/10/22 14:06: Patient had a follow up appointment scheduled with neurology - patient did attend appointment. Original Note: Neurology Referral Consults received for neurology follow-up. Referral sent at this time. Clinic to contact patient with appt date/time.
[2022-05-06 12:23] LABS: Anti-Nuclear Antibody Pattern Nuclear, Homogeneous; Anti-Nuclear Antibody Screen POSITIVE (NEGATIVE); Anti-Nuclear Antibody Titer 1:40 titer
== END 2022-05-02 23:00 | disposition home or self-care (01) ==
PROVIDERS: Emergency Provider Emergency Medicine; PCP Nurse Practitioner Family
DX: R55 Syncope and collapse (principal); I10 Essential (primary) hypertension; F17.210 Nicotine dependence, cigarettes, uncomplicated; Z79.82 Long term (current) use of aspirin
CPT/HCPCS: 70450; 71045; 80053; 80307; 83605; 83735; 84100; 84703; 85025; 86038; 86140; 99285; J7030

== ENCOUNTER 2022-06-03 15:41 | Outpatient (CLI) | payer OTHER, SELFPAY ==
--- NOTE | 2022-06-03 16:00 | MR_ITS ---
WS: [id number] MRI BRAIN WITHOUT CONTRAST HISTORY: R56.9 - Unspecified convulsions COMPARISON: Noncontrast CT head 05/02/2022 TECHNIQUE: Diffusion imaging, multiplanar T1, T2 and FLAIR imaging obtained. Additional high-resoluti on imaging through the temporal lobes. No evidence for acute infarct or hemorrhage. Lynn-white matter differentiation is normal. No remote or acute infarcts are volume loss. Nearly symmetric appearance of the hippocampal formations. No mesial sclerosis. There is mild asymmet ry but this is probably due to rotation of the head. The LEFT hippocampal formation appears slightly smaller with slight increased amount of fluid adjacent to the hippocampus. Ventricles and extra-axial spaces are normal. No subependymal nodules. No inferior displacement of cerebellar tonsils. The sella turcica and pituitary gland are unremarkabl e. Dural venous sinuses and [place] demonstrate no abnormality on this unenhanced studies. Paranasal sinuses: Large mucous retention cyst in the RIGHT maxillary antrum. No air-fluid levels. Mastoid air cells: Normal. Calvarium and scalp: Intact. MR/MR head wo con* [id number] IMPRESSION: 1. No acute intracranial hemorrhage or edema. No mass effect. 2. There is very slight asymmetry between the hippocampal formations with the LEFT being slightly smaller. This may be due to mild rotation of the patient. N o signal abnormalities. 3. Normal ventricles.
== END 2022-06-03 15:42 | disposition home or self-care (01) ==
LOC: RAD 15:41
PROVIDERS: PCP Nurse Practitioner Family; Visit Provider Nurse Practitioner
DX: R56.9 Unspecified convulsions (principal)
CPT/HCPCS: 70551

== ENCOUNTER 2022-06-24 14:13 | Outpatient (CLI) | payer OTHER, SELFPAY ==
--- NOTE | 2022-06-24 14:30 | USCV_ITS ---
Flor Fortune Age: 47 Gender: F : 1975 Exam Date: 06/24/2022 14:50 Ordering Phys: Nita Bermudez MD ([email or web address]) Technologist: DANYA [place] [facility] [place]: CHEST PAIN, SHORTNESS OF BREATH, SYNCOPE BP: 130 / 80 HR: 66 Rhythm: Sinus Technical Quality: Adequate MEASUREMENTS (Male / Female) Normal Values 2D ECHO LVOT Diameter 2.0 cm LV Ejection Fraction MOD 2C 56.3 % LV Ejection Fraction 2C AL 54.4 % LA Diameter 2.4 cm LA Width 2.8 cm LA Height 3.9 cm RA Width 3.0 cm RA Height 3.5 cm Aorta at Sinotubular Diameter 2.1 cm M-MODE Aortic Annulus Diameter 2.9 cm LA Ao Ratio MM 0.8 MV E Point Septal Separation 0.2 cm DOPPLER AV Peak Velocity 130.0 cm/s LVOT Peak Velocity 102.0 cm/s AV Area Cont Eq vti 3.1 cm squared AV Area Cont Eq pk 2.5 cm squared MV Peak Velocity 90.0 cm/s MV Area PHT 3.7 cm squared Mitral E to A Ratio 1.1 MV E' Velocity 47.5 cm/s Mitral E to MV E' Ratio 7.7 Mitral E to LV E' Lateral Ratio 7.5 Mitral E to LV E' Septal Ratio 8.0 TR Peak Velocity 190.6 cm/s TR Peak Gradient 14.5 mmHg TR Mean Velocity 161.8 cm/s TR Mean Gradient 10.8 mmHg TR Velocity Time Integral 64.0 cm TV Peak E Velocity 35.0 cm/s Right Atrial Pressure 8.0 mmHg Pulmonary Artery Systolic Pressu 22.5 mmHg PV Peak Velocity 84.0 cm/s RV Acceleration Time 0.1 s RV Ejection Time 0.4 s RV AcT/ET 0.4 FINDINGS Left Ventricle Normal left ventricular size, systolic function and wall thickness, with no regional wall motion abnormalities. Left ventricular ejection fraction is estimated at 65 %. Normal diastolic function. Right Ventricle Normal right ventricular size and systolic function. Right ventricular systolic pressure 22.5 mmHg. Right Atrium Normal right atrial size. Left Atrium Normal left atrial size. Mitral Valve Structurally normal mitral valve. No mitral valve stenosis. No mitral valve regurgitation. Aortic Valve Structurally normal trileaflet aortic valve. No aortic valve stenosis. No aortic valve regurgitation. Tricuspid Valve Structurally normal tricuspid valve. Trace tricuspid valve regurgitation. Pulmonic Valve Pulmonic valve not well visualized. No pulmonary valve stenosis. No significant pulmonary valve regurgitation. Pericardium No pericardial effusion. Aorta Normal size aortic root and proximal ascending aorta. IVC Inferior vena cava not visualized. CONCLUSIONS 1. Normal left ventricular size, systolic function and wall thickness, with no regional wall motion abnormalities. Left ventricular ejection fraction is estimated at 65 %. Normal diastolic function. 2. No significant valvular abnormality. 3. No prior similar studies to compare. Nita Bermudez MD (Electronically Signed) Final Date: 26 June 2022 15:12 S
[2022-06-24] MEDS: perflutren protein-a microsphr 0.22 mg/mL SDV 3 mL IV (15:25)
== END 2022-06-24 14:14 | disposition home or self-care (01) ==
PROVIDERS: PCP Registered Nurse; Visit Provider Internal Medicine Cardiovascular Disease
DX: R07.9 Chest pain, unspecified (principal); R06.02 Shortness of breath; R55 Syncope and collapse
CPT/HCPCS: C8929; Q9956

== ENCOUNTER 2022-06-24 14:14 | Outpatient (CLI) | payer OTHER, SELFPAY ==
--- NOTE | 2022-06-24 | USCV_ITS ---
Flor Fortune Age: 47 Gender: F : 1975 Exam Date: 06/24/2022 14:34 Ordering Phys: Kiki Marie Technologist: DANYA [place] [facility] [place] Risk Factors: Previous Vascular Surgery: Right Brachial BP: / Left Brachial BP: / Right Left Velocity (cm/s) Spectral Plaque Velocity (cm/s) Spectral Plaque Syst/Diast Broadening Syst/Diast Broadening 110.30/36.40 Prox CCA 114.70/ 26.50 103.20/33.40 Mid CCA 124.60/ 35.30 95.70/ 32.20 Distal CCA 103.20/ 34.70 50.30/ 17.20 Prox ICA 57.70 / 17.70 53.80/ 26.90 Mid ICA 71.80 / 28.20 73.80/ 34.20 Distal ICA 48.50 / 24.00 72.10 ECA 51.90 0.67 ICA/CCA 0.58 Antegrade Vertebral Antegrade 55.90/ 21.00 cm/s 54.00/ 20.20 cm/s Tri Subclavian Tri 121.3 96.10 0 CONCLUSIONS Right ICA stenosis <50%. Left ICA stenosis <50%. Normal antegrade Doppler flow noted in the right vertebral artery. Normal antegrade Doppler flow noted in the left vertebral artery. Edinson Rock MD (Electronically Signed) Final Date: 24 June 2022 17:10 S
== END 2022-06-24 14:15 | disposition home or self-care (01) ==
PROVIDERS: PCP Registered Nurse; Visit Provider Registered Nurse
DX: R55 Syncope and collapse (principal); I65.23 Occlusion and stenosis of bilateral carotid arteries
CPT/HCPCS: 93880

== ENCOUNTER → 2023-11-18 10:15 | Outpatient (BNVA) | payer OTHER, SELFPAY | PROVIDERS: PCP Registered Nurse; Referring Provider Registered Nurse; Visit Provider Physician Assistant | DX: M77.11 Lateral epicondylitis, right elbow | CPT/HCPCS: 73080 ==

== ENCOUNTER → 2024-01-04 09:58 | Outpatient (BNVA) | payer OTHER, SELFPAY | PROVIDERS: PCP Registered Nurse; Visit Provider Physician Assistant | DX: M77.11 Lateral epicondylitis, right elbow (principal) | CPT/HCPCS: 73080 ==